=== PATIENT | female | born 1945 | race Caucasian/White ===

== ENCOUNTER → 2016-12-27 | Outpatient (CLI) | payer OTHER ==
[~2016-12-27] VITALS: Ht 162.6 cm; Wt 99.8 kg
[~2016-12-27] MED LIST: ALBUTEROL SULF8.5 GM IH; AMLODIPINE BESYL5 MG PO; ASPIR 8181 M1 PO; ASPIRIN325 MG PO; ASPIRIN81 M2 PO; Advair HFA 115/21 IH; DIABETA,MICRONAS5 MG PO; DIABETA5 MG PO; Diabeta,Micronase PO; EFFIENT10 MG PO; FERROUS SULFAT325 MG PO; Feosol PO; GAS-X80 MG PO; GLIPIZIDE5 MG PO; GLUCOPHAGE500 M1 PO; GLUCOPHAGE500 MG PO; GLYBURIDE5 MG PO; JANUVIA100 MG PO; LANTUS (UNITS)1 UNIT SQ; LANTUS 3 M100 UNITS1 SC; LISINOPRIL20 MG PO; LISINOPRIL5 MG PO; LOPRESSOR25 MG PO; METFORMIN HCL500 MG PO; METOPROLOL SUCC25 MG PO; METOPROLOL TART25 MG PO; MONTELUKAST SOD10 MG PO; NORVASC5 MG PO; PLAVIX75 MG PO; PRAVACHOL40 MG PO; PRAVASTATIN SOD40 MG PO; PRINIVIL5 MG PO; PROAIR HFA8.5 GM IH; PROTONIX40 MG PO; Proventil,Ventolin H IH; SINGULAIR10 MG PO; SPIRIVA1 INHALATI IH; Singulair PO; Vibramycin, Doryx PO; predniSONE PO
[2016-12-27 11:02] LABS: CHLORIDE 101 mEq/L (99-109); POTASSIUM 4.7 mEq/L (3.7-5.4); SODIUM 137 mEq/L (136-147)
[2016-12-27 11:03] LABS: GLUCOSE 178 mg/dL (70-99)
[2016-12-27 11:05] LABS: ANION GAP 10 MEQ/L (2-14)
[2016-12-27 11:07] LABS: GFR ESTIMATE (CALCULATED) > 59 mL/min/
[2016-12-27 11:08] LABS: UREA NITROGEN (BUN) 10 mg/dL (9-23)
[2016-12-27 11:45] LABS: POINT-OF-CARE METER ID UU13113694
== END | disposition home or self-care (01) ==
LOC: AMB 10:31
PROVIDERS: Anesthesiology; Internal Medicine Gastroenterology
DX: R13.10 Dysphagia, unspecified (principal); R93.3 Abnormal findings on diagnostic imaging of other parts of digestive tract; E11.9 Type 2 diabetes mellitus without complications; I10 Essential (primary) hypertension; J44.9 Chronic obstructive pulmonary disease, unspecified; F17.200 Nicotine dependence, unspecified, uncomplicated; Z79.51 Long term (current) use of inhaled steroids
CPT/HCPCS: 80048; 82948; 88305; 93005; J3010

== ENCOUNTER 2017-01-30 10:29 | Inpatient (IN) | payer OTHER ==
[~2017-01-30] VITALS: Ht 158.8 cm; Wt 103.5 kg
[2017-01-30 11:36] LABS: EOSINOPHIL (%) 1.4 % (0-5); EOSINOPHIL COUNT 0.1 K/uL (0-0.3); HEMATOCRIT 38.7 % (36.0-46.0); IMMATURE GRANULOCYTE (%) 0.4 % (0.0-0.7); IMMATURE GRANULOCYTE COUNT 0.3 K/uL; LYMPHOCYTE COUNT 2.5 K/uL (1.0-2.8); MCH 29.7 PG (29.0-34.0); MCHC 33.6 G/DL (30.0-36.0); MCV 88.4 FL (83-99); MEAN PLAT.VOLUME 11.1 uM^3 (9.5-12.4); MONOCYTE (%) 8.8 % (3-12); MONOCYTE COUNT 0.7 K/uL (0-0.8); NEUTROPHIL (%) 59.9 % (45-76); PLATELET COUNT 101 K/uL (156-360); RBC DIS.WIDTH-CV 12.9 % (11.8-14.6); RBC DIS.WIDTH-SD 40.6 % (39-53); RED BLOOD COUNT 4.38 M/uL (3.80-5.20); WHITE BLOOD COUNT 8.4 K/uL (4.1-10.2)
[2017-01-30 11:48] LABS: CHLORIDE 102 mEq/L (99-109); POTASSIUM 4.8 mEq/L (3.7-5.4); SODIUM 135 mEq/L (136-147)
[2017-01-30 11:50] LABS: GLUCOSE 152 mg/dL (70-99)
[2017-01-30 11:52] LABS: ANION GAP 11 MEQ/L (2-14); TOTAL BILIRUBIN 0.3 mg/dL (0.0-1.0)
[2017-01-30 11:54] LABS: ALKALINE PHOSPHATASE 65 IU/L (3-129); GFR ESTIMATE (CALCULATED) > 59 mL/min/
[2017-01-30 11:55] LABS: UREA NITROGEN (BUN) 11 mg/dL (9-23)
[2017-01-30 11:58] LABS: TROP-I INTERPRETATION NEGATIVE; TROPONIN-I < 0.01 ng/mL (0.0-0.30)
[2017-01-30 13:23] LABS: ADD MIUA? NO; BILIRUBIN NEGATIVE; BLOOD NEGATIVE; COLOR YELLOW ((YELLOW)); GLUCOSE (STRIP) 150; KETONES NEGATIVE; LEUKOCYTES NEGATIVE; NITRITE NEGATIVE; PROTEIN (STRIP) NEGATIVE; UROBILINOGEN 0.2 MG/DL (0.2-1.0)
[2017-01-30] MEDS ORDERED: VENTOLIN HFA18 GM IH (14:21)
[2017-01-30] MEDS ORDERED: CLOBETASOL PROP60 GM TP (14:22)
[2017-01-30] MEDS ORDERED: JANUVIA100 MG PO (14:24)
[2017-01-30] MEDS ORDERED: GLIPIZIDE5 MG PO (14:26)
[2017-01-30] MEDS ORDERED: PLAVIX75 MG PO (14:27)
[2017-01-30] MEDS ORDERED: SIMETHICONE80 MG PO (14:28)
[2017-01-30 18:07] VITALS: BP 146/67
[2017-01-30 19:41] VITALS: BP 154/70
[2017-01-30 20:21] LABS: TROP-I INTERPRETATION NEGATIVE; TROPONIN-I < 0.01 ng/mL (0.0-0.30)
[2017-01-30 22:42] LABS: POINT-OF-CARE METER ID UU14174225
[2017-01-31] VITALS (7 sets, daily range): BP systolic 133–162; BP diastolic 67–80
[2017-01-31 04:50] LABS: TROP-I INTERPRETATION NEGATIVE; TROPONIN-I < 0.01 ng/mL (0.0-0.30)
[2017-02-01 03:42] VITALS: BP 135/70
[2017-02-01 06:22] LABS: Estimated Average Glucose 163 mg/dL (70-123); HEMOGLOBIN A1c (GLYCOHEMOGLOB) 7.3 % HGB (Below 5.7)
[2017-02-01 06:50] LABS: HDL CHOLESTEROL 26 MG/DL (Desirable>=50); LDL CHOLESTEROL 75 mg/dL (Desirable<100); NON-HDL CHOLESTEROL 131 mg/dL (Desirable<160); TOTAL CHOLESTEROL 157 mg/dL (Desirable<200); TRIGLYCERIDES 281 MG/DL (Normal: <150)
[2017-02-01 07:49] VITALS: BP 166/87
[2017-02-01 07:50] LABS: POINT-OF-CARE METER ID UU14188625
[2017-02-01 11:36] VITALS: BP 129/65
[2017-02-01 15:39] VITALS: BP 130/61
[2017-02-02] VITALS: BP 151/66
[2017-02-02] MEDS ORDERED: ATORVASTATIN CA40 MG PO (08:43)
[2017-02-03] MEDS ORDERED: NICODERM CQ1 EAC1 TD (04:12)
[2017-02-03] MEDS ORDERED: MYCOSTATIN15 GM PO (04:13)
[2017-02-03] MEDS ORDERED: LEVEMIR FL100 UNIT/1 SC (04:14)
[2017-02-03] MEDS ORDERED: LOVENOX40 MG/0.4 SC (04:14)
[2017-02-03] MEDS ORDERED: ONDANSETRON HCL4 MG PO (04:16)
[2017-02-03] MEDS ORDERED: DUONEB 2.5-0.5 M3 ML IPPB (04:18)
== END 2017-02-02 13:55 | DRG 65 ==
LOC: EME → EDBD 10:29 → EDOF 14:16 → 5SOUTH 14:16
PROVIDERS: Emergency Medicine; Internal Medicine
DX: I63.9 Cerebral infarction, unspecified (principal); Z68.41 Body mass index [BMI] 40.0-44.9, adult; R26.89 Other abnormalities of gait and mobility; I44.0 Atrioventricular block, first degree; R47.81 Slurred speech; E11.42 Type 2 diabetes mellitus with diabetic polyneuropathy; I25.10 Atherosclerotic heart disease of native coronary artery without angina pectoris; I25.2 Old myocardial infarction; I50.9 Heart failure, unspecified; I11.0 Hypertensive heart disease with heart failure; K21.9 Gastro-esophageal reflux disease without esophagitis; L40.9 Psoriasis, unspecified; D69.6 Thrombocytopenia, unspecified; E78.5 Hyperlipidemia, unspecified; E66.9 Obesity, unspecified; R29.810 Facial weakness; Z86.73 Personal history of transient ischemic attack (TIA), and cerebral infarction without residual deficits; I08.3 Combined rheumatic disorders of mitral, aortic and tricuspid valves; J44.9 Chronic obstructive pulmonary disease, unspecified
CPT/HCPCS: 70450; 70544; 70549; 70551; 71010; 74230; 80053; 80061; 81003; 82948; 83036; 83880; 84484; 85025; 92526 GN; 92610 GN; 92611 GN; 93005; 93306; 94640; 94640 76; 99202; 99281; 99285; J1650; J1815

== ENCOUNTER 2017-02-02 13:52 | Inpatient (IN) | payer OTHER ==
[~2017-02-02] VITALS: Ht 161.3 cm; Wt 100.0 kg
[~2017-02-02 13:52] MED LIST changes: +ATORVASTATIN CA40 MG PO; +CLOBETASOL PROP60 GM TP; +SIMETHICONE80 MG PO; +VENTOLIN HFA18 GM IH
[2017-02-02 14:05] VITALS: BP 137/63
[2017-02-02 15:42] VITALS: BP 118/60
[2017-02-02 16:17] LABS: POINT-OF-CARE METER ID UU13113720
[2017-02-02 21:39] LABS: POINT-OF-CARE METER ID UU13113720
[2017-02-02 23:45] VITALS: BP 132/61
[2017-02-03] MEDS ORDERED: NICODERM CQ1 EAC1 TD (04:12)
[2017-02-03] MEDS ORDERED: MYCOSTATIN15 GM PO (04:13)
[2017-02-03] MEDS ORDERED: LOVENOX40 MG/0.4 SC (04:14)
[2017-02-03] MEDS ORDERED: LEVEMIR FL100 UNIT/1 SC (04:14)
[2017-02-03] MEDS ORDERED: ONDANSETRON HCL4 MG PO (04:16)
[2017-02-03] MEDS ORDERED: DUONEB 2.5-0.5 M3 ML IPPB (04:18)
[2017-02-03 05:47] VITALS: BP 151/67
[2017-02-03 06:00] LABS: MCH 29.3 PG (29.0-34.0); MCHC 32.9 G/DL (30.0-36.0); MCV 89.2 FL (83-99); MEAN PLAT.VOLUME 11.5 uM^3 (9.5-12.4); PLATELET COUNT 87 K/uL (156-360); RBC DIS.WIDTH-CV 12.8 % (11.8-14.6); RBC DIS.WIDTH-SD 41.9 % (39-53); RED BLOOD COUNT 4.26 M/uL (3.80-5.20); WHITE BLOOD COUNT 7.7 K/uL (4.1-10.2)
[2017-02-03 06:28] LABS: ALKALINE PHOSPHATASE 55 IU/L (3-129); CHLORIDE 98 MEQ/L (99-109); GFR ESTIMATE (CALCULATED) > 59 mL/min/; GLUCOSE 139 mg/dL (70-99); POTASSIUM 4.1 MEQ/L (3.7-5.4); SAMPLE HEMOLYSIS CHECK 0; SAMPLE ICTERIC CHECK 0; SODIUM 134 MEQ/L (136-147); TOTAL BILIRUBIN 0.4 MG/DL (0.0-1.0); UREA NITROGEN (BUN) 17 mg/dL (9-23)
[2017-02-03 06:29] LABS: ANION GAP 10 MEQ/L (2-14); SAMPLE LIPEMIA CHECK 0
[2017-02-03 11:26] LABS: POINT-OF-CARE METER ID UU14174215; POINT-OF-CARE USER ID ENVGAF
[2017-02-03 15:20] VITALS: BP 131/58
[2017-02-03 16:34] LABS: POINT-OF-CARE METER ID UU14174215
[2017-02-03 21:57] LABS: POINT-OF-CARE METER ID UU14174215
[2017-02-04 05:56] VITALS: BP 143/63
[2017-02-04 07:16] LABS: POINT-OF-CARE METER ID UU14174215; POINT-OF-CARE USER ID ENVGAF
[2017-02-04 11:21] LABS: POINT-OF-CARE METER ID UU14174215; POINT-OF-CARE USER ID ENVGAF
[2017-02-04 15:53] VITALS: BP 131/77
[2017-02-04 16:38] LABS: POINT-OF-CARE METER ID UU14174215
[2017-02-04 21:00] VITALS: BP 158/78
[2017-02-04 21:26] LABS: POINT-OF-CARE METER ID UU13113720
[2017-02-05 05:07] VITALS: BP 152/69
[2017-02-05 07:25] LABS: POINT-OF-CARE METER ID UU14174215; POINT-OF-CARE USER ID AHSSSJB31
[2017-02-05 08:23] LABS: POINT-OF-CARE METER ID UU13113720
[2017-02-05 11:53] LABS: POINT-OF-CARE METER ID UU14174215; POINT-OF-CARE USER ID AHSSSJB31
[2017-02-05 15:15] VITALS: BP 165/74
[2017-02-05 16:42] LABS: POINT-OF-CARE METER ID UU13113720
[2017-02-05 22:44] LABS: POINT-OF-CARE METER ID UU14174215
[2017-02-06 05:02] VITALS: BP 149/70
[2017-02-06 07:43] LABS: POINT-OF-CARE METER ID UU14174215; POINT-OF-CARE USER ID AHSSSJB31
[2017-02-06 11:37] LABS: POINT-OF-CARE METER ID UU14174215
[2017-02-06 15:24] VITALS: BP 130/67
[2017-02-06 16:49] LABS: POINT-OF-CARE METER ID UU14174215
[2017-02-06 21:28] LABS: POINT-OF-CARE METER ID UU14174215
[2017-02-07 05:17] VITALS: BP 133/63
[2017-02-07 06:51] LABS: POINT-OF-CARE METER ID UU13113720; POINT-OF-CARE USER ID ENVGAF
[2017-02-07 11:49] LABS: POINT-OF-CARE METER ID UU13113720
[2017-02-07 16:10] LABS: POINT-OF-CARE METER ID UU13113720
[2017-02-07 17:25] VITALS: BP 152/71
[2017-02-07 20:18] VITALS: BP 158/72
[2017-02-07 21:08] LABS: POINT-OF-CARE METER ID UU14174215
[2017-02-08 05:38] VITALS: BP 147/65
[2017-02-08 05:42] LABS: MCH 29.1 PG (29.0-34.0); MCHC 32.8 G/DL (30.0-36.0); MCV 88.7 FL (83-99); MEAN PLAT.VOLUME 11.1 uM^3 (9.5-12.4); PLATELET COUNT 111 K/uL (156-360); RBC DIS.WIDTH-CV 12.6 % (11.8-14.6); RBC DIS.WIDTH-SD 40.9 % (39-53); RED BLOOD COUNT 4.06 M/uL (3.80-5.20); WHITE BLOOD COUNT 7.8 K/uL (4.1-10.2)
[2017-02-08 06:39] LABS: ALKALINE PHOSPHATASE 62 IU/L (3-129); ANION GAP 10 MEQ/L (2-14); CHLORIDE 100 MEQ/L (99-109); GFR ESTIMATE (CALCULATED) > 59 mL/min/; GLUCOSE 192 mg/dL (70-99); POTASSIUM 3.9 MEQ/L (3.7-5.4); SAMPLE HEMOLYSIS CHECK 0; SAMPLE ICTERIC CHECK 0; SAMPLE LIPEMIA CHECK 0; SODIUM 136 MEQ/L (136-147); TOTAL BILIRUBIN 0.4 MG/DL (0.0-1.0); UREA NITROGEN (BUN) 18 mg/dL (9-23)
[2017-02-08 07:21] LABS: POINT-OF-CARE METER ID UU13113720
[2017-02-08 09:36] VITALS: BP 143/90
[2017-02-08 11:39] LABS: POINT-OF-CARE METER ID UU13113720
[2017-02-08 15:30] VITALS: BP 144/73
[2017-02-08 16:25] LABS: POINT-OF-CARE METER ID UU14174215
[2017-02-08 21:06] LABS: POINT-OF-CARE METER ID UU14174215
[2017-02-09 05:54] VITALS: BP 136/62
[2017-02-09 07:36] VITALS: BP 140/69
[2017-02-09 07:57] LABS: POINT-OF-CARE METER ID UU14174215; POINT-OF-CARE USER ID ENVGAF
[2017-02-09] MEDS ORDERED: METOPROLOL TART25 MG PO (11:19)
[2017-02-09] MEDS ORDERED: JANUVIA25 M1 PO (11:19)
[2017-02-09] MEDS ORDERED: NICODERM CQ1 EAC1 TD (11:19)
[2017-02-09] MEDS ORDERED: ATORVASTATIN CA40 MG PO (11:19)
[2017-02-09] MEDS ORDERED: LEVEMIR FL100 UNIT/1 SC (11:19)
[2017-02-09] MEDS ORDERED: PROTONIX40 MG PO (11:19)
[2017-02-09] MEDS ORDERED: METFORMIN HCL500 MG PO (11:19)
[2017-02-09] MEDS ORDERED: AMLODIPINE BESYL5 MG PO (11:19)
[2017-02-09] MEDS ORDERED: VENTOLIN HFA18 GM IH (11:19)
[2017-02-09] MEDS ORDERED: GLIPIZIDE5 MG PO (11:19)
[2017-02-09] MEDS ORDERED: LISINOPRIL20 MG PO (11:19)
[2017-02-09] MEDS ORDERED: ASPIRIN81 M2 PO (11:19)
[2017-02-09] MEDS ORDERED: PLAVIX75 MG PO (11:19)
[2017-02-09 11:27] LABS: POINT-OF-CARE METER ID UU13113720; POINT-OF-CARE USER ID ENVGAF
== END 2017-02-09 14:41 | DRG 57 ==
LOC: 3WEST 13:52
PROVIDERS: Physical Medicine & Rehabilitation Pain Medicine
PROC: F07M0ZZ Range of Motion and Joint Mobility Treatment of Musculoskeletal System - Whole Body (ICD-10-PCS; principal; 2017-02-02)
DX: I69.351 Hemiplegia and hemiparesis following cerebral infarction affecting right dominant side (principal); E87.1 Hypo-osmolality and hyponatremia; R26.9 Unspecified abnormalities of gait and mobility; I69.322 Dysarthria following cerebral infarction; I69.391 Dysphagia following cerebral infarction; R13.10 Dysphagia, unspecified; D69.6 Thrombocytopenia, unspecified; I10 Essential (primary) hypertension; E11.9 Type 2 diabetes mellitus without complications; I25.10 Atherosclerotic heart disease of native coronary artery without angina pectoris; K21.9 Gastro-esophageal reflux disease without esophagitis; E66.9 Obesity, unspecified; Z68.38 Body mass index [BMI] 38.0-38.9, adult; Z85.3 Personal history of malignant neoplasm of breast; Z88.0 Allergy status to penicillin; Z87.891 Personal history of nicotine dependence
CPT/HCPCS: 74230; 80053; 82948; 85027; 92507 GN; 92523 GN; 92526 GN; 92610 GN; 92611 GN; 94640; 94640 76; 97110 GO; 97530 GP; 99202; J1650

== ENCOUNTER 2017-03-15 09:41 | Emergency (ER) | payer OTHER ==
[~2017-03-15] VITALS: Ht 160 cm; Wt 97.0 kg
[~2017-03-15 09:41] MED LIST changes: +DUONEB 2.5-0.5 M3 ML IPPB; +JANUVIA25 M1 PO; +LEVEMIR FL100 UNIT/1 SC; +LOVENOX40 MG/0.4 SC; +MYCOSTATIN15 GM PO; +NICODERM CQ1 EAC1 TD; +ONDANSETRON HCL4 MG PO
[2017-03-15 10:11] LABS: POINT-OF-CARE METER ID UU14100415
[2017-03-15 10:27] LABS: EOSINOPHIL (%) 0.9 % (0-5); EOSINOPHIL COUNT 0.1 K/uL (0-0.3); HEMATOCRIT 39.3 % (36.0-46.0); IMMATURE GRANULOCYTE (%) 0.5 % (0.0-0.7); IMMATURE GRANULOCYTE COUNT 0.1 K/uL; INSTRUMENT ABS NEUTROPHIL CT 6.6 K/uL; LYMPHOCYTE COUNT 2.2 K/uL (1.0-2.8); MCH 28.9 PG (29.0-34.0); MCHC 33.3 G/DL (30.0-36.0); MCV 86.6 FL (83-99); MONOCYTE (%) 8.4 % (3-12); MONOCYTE COUNT 0.8 K/uL (0-0.8); NEUTROPHIL (%) 67.6 % (45-76); NEUTROPHIL COUNT 6.6 K/uL (1.8-6.4); PLATELET COUNT 185 K/uL (156-360); RBC DIS.WIDTH-CV 12.6 % (11.8-14.6); RBC DIS.WIDTH-SD 39.6 % (39-53); RED BLOOD COUNT 4.54 M/uL (3.80-5.20); WHITE BLOOD COUNT 9.8 K/uL (4.1-10.2)
[2017-03-15 10:36] LABS: CHLORIDE 104 mEq/L (99-109); POTASSIUM 3.2 mEq/L (3.7-5.4); SODIUM 141 mEq/L (136-147)
[2017-03-15 10:38] LABS: GLUCOSE 141 mg/dL (70-99); INTER. NORMALIZED RATIO 1.2; PTT 25.8 (25-32)
[2017-03-15 10:39] LABS: ANION GAP 14 MEQ/L (2-14)
[2017-03-15 10:42] LABS: GFR ESTIMATE (CALCULATED) > 59 mL/min/
[2017-03-15 10:43] LABS: UREA NITROGEN (BUN) 9 mg/dL (9-23)
[2017-03-15 10:48] LABS: TROP-I INTERPRETATION NEGATIVE; TROPONIN-I < 0.01 ng/mL (0.0-0.30)
[2017-03-15 15:22] VITALS: BP 136/82
== END 2017-03-15 15:23 | disposition home or self-care (01) ==
LOC: EME 09:41
PROVIDERS: Emergency Medicine
DX: R53.1 Weakness (principal); R42 Dizziness and giddiness; I69.328 Other speech and language deficits following cerebral infarction; F17.200 Nicotine dependence, unspecified, uncomplicated; Z79.02 Long term (current) use of antithrombotics/antiplatelets; Z79.82 Long term (current) use of aspirin; Z85.3 Personal history of malignant neoplasm of breast
CPT/HCPCS: 70450; 70551; 71010; 80048; 82948; 84484; 85025; 85610; 85730; 93005; 99281; 99285

== ENCOUNTER 2017-06-30 08:02 | Emergency (ER) | payer OTHER ==
[~2017-06-30] VITALS: Ht 160 cm; Wt 93.0 kg
[2017-06-30] MEDS ORDERED: LANTUS 3 M100 UNITS1 SC (09:25)
[2017-06-30] MEDS ORDERED: NIZORAL 2% CREA15 GM TP (09:25)
[2017-06-30 09:31] LABS: EOSINOPHIL (%) 0.7 % (0-5); EOSINOPHIL COUNT 0.1 K/uL (0-0.3); HEMATOCRIT 40.4 % (36.0-46.0); IMMATURE GRANULOCYTE (%) 0.6 % (0.0-0.7); IMMATURE GRANULOCYTE COUNT 0.1 K/uL; INSTRUMENT ABS NEUTROPHIL CT 7.5 K/uL; LYMPHOCYTE COUNT 3.6 K/uL (1.0-2.8); MCHC 33.4 G/DL (30.0-36.0); MCV 86.9 FL (83-99); MEAN PLAT.VOLUME 11.6 uM^3 (9.5-12.4); MONOCYTE (%) 6.2 % (3-12); MONOCYTE COUNT 0.8 K/uL (0-0.8); NEUTROPHIL (%) 62.1 % (45-76); NEUTROPHIL COUNT 7.5 K/uL (1.8-6.4); PLATELET COUNT 140 K/uL (156-360); RBC DIS.WIDTH-CV 13.2 % (11.8-14.6); RBC DIS.WIDTH-SD 41.3 % (39-53); RED BLOOD COUNT 4.65 M/uL (3.80-5.20)
[2017-06-30 09:45] LABS: CHLORIDE 104 mEq/L (99-109); POTASSIUM 3.6 mEq/L (3.7-5.4); SODIUM 140 mEq/L (136-147)
[2017-06-30 09:47] LABS: GLUCOSE 221 mg/dL (70-99)
[2017-06-30 09:48] LABS: ANION GAP 15 MEQ/L (2-14)
[2017-06-30 09:51] LABS: GFR ESTIMATE (CALCULATED) > 59 mL/min/
[2017-06-30 09:52] LABS: UREA NITROGEN (BUN) 17 mg/dL (9-23)
[2017-06-30 09:55] LABS: TROP-I INTERPRETATION NEGATIVE; TROPONIN-I < 0.01 ng/mL (0.0-0.30)
[2017-06-30] MEDS ORDERED: ANTIVERT25 MG PO (11:44)
[2017-06-30] MEDS ORDERED: ZITHROMAX Z-PA250 MG PO (11:44)
[2017-06-30 12:35] VITALS: BP 136/67
== END 2017-06-30 12:43 | disposition home or self-care (01) ==
LOC: EME → EDBD 08:02 → EME 12:43
PROVIDERS: Emergency Medicine
DX: R42 Dizziness and giddiness (principal); J32.0 Chronic maxillary sinusitis; H93.11 Tinnitus, right ear; J44.9 Chronic obstructive pulmonary disease, unspecified; I10 Essential (primary) hypertension; E11.9 Type 2 diabetes mellitus without complications; Z79.4 Long term (current) use of insulin; Z79.02 Long term (current) use of antithrombotics/antiplatelets; Z79.82 Long term (current) use of aspirin; Z85.3 Personal history of malignant neoplasm of breast; F17.200 Nicotine dependence, unspecified, uncomplicated
CPT/HCPCS: 70450; 71010; 80048; 84484; 85025; 93005; 94640; 99281; 99284; J2405; J7030

== ENCOUNTER 2017-07-03 06:12 | Emergency (ER) | payer OTHER ==
[~2017-07-03] VITALS: Ht 160 cm; Wt 93.1 kg
[~2017-07-03 06:12] MED LIST changes: +ANTIVERT25 MG PO; +NIZORAL 2% CREA15 GM TP; +ZITHROMAX Z-PA250 MG PO
[2017-07-03 07:24] LABS: HEMATOCRIT 37.5 % (36.0-46.0); MCHC 33.1 G/DL (30.0-36.0); MCV 87.8 FL (83-99); MEAN PLAT.VOLUME 10.9 uM^3 (9.5-12.4); PLATELET COUNT 146 K/uL (156-360); RBC DIS.WIDTH-CV 13.2 % (11.8-14.6); RBC DIS.WIDTH-SD 42.2 % (39-53); RED BLOOD COUNT 4.27 M/uL (3.80-5.20); WHITE BLOOD COUNT 9.4 K/uL (4.1-10.2)
[2017-07-03 07:54] LABS: ALKALINE PHOSPHATASE 68 IU/L (3-129); ANION GAP 11 MEQ/L (2-14); CHLORIDE 103 MEQ/L (99-109); CREATINE KINASE 39 IU/L (1-294); GFR ESTIMATE (CALCULATED) > 59 mL/min/; GLUCOSE 135 mg/dL (70-99); POTASSIUM 3.9 MEQ/L (3.7-5.4); SAMPLE HEMOLYSIS CHECK 0; SAMPLE ICTERIC CHECK 0; SAMPLE LIPEMIA CHECK 0; SODIUM 140 MEQ/L (136-147); TOTAL BILIRUBIN 0.5 MG/DL (0.0-1.0); TOTAL CK 39 IU/L (1-294); UREA NITROGEN (BUN) 12 mg/dL (9-23)
[2017-07-03 07:56] LABS: TROP-I INTERPRETATION NEGATIVE; TROPONIN-I < 0.01 ng/mL (0.0-0.30)
[2017-07-03 08:25] LABS: CK-MB 1.2 ng/mL (0.0-4.9)
[2017-07-03 11:09] VITALS: BP 137/79
== END 2017-07-03 11:10 | disposition home or self-care (01) ==
LOC: EME → EDBD 06:12 → EME 06:12
PROVIDERS: Emergency Medicine
DX: R42 Dizziness and giddiness (principal); E86.0 Dehydration; E11.9 Type 2 diabetes mellitus without complications; J44.9 Chronic obstructive pulmonary disease, unspecified; I10 Essential (primary) hypertension; I25.2 Old myocardial infarction; K21.9 Gastro-esophageal reflux disease without esophagitis; Z79.4 Long term (current) use of insulin; F17.200 Nicotine dependence, unspecified, uncomplicated; Z79.82 Long term (current) use of aspirin; Z79.84 Long term (current) use of oral hypoglycemic drugs
CPT/HCPCS: 80053; 82550; 82553; 84484; 85027; 93005; 99281; 99285; J2405